=== PATIENT | male | born 1970 | race Asian ===

== ENCOUNTER → 2020-04-10 | Emergency (ER) | payer MEDICAID ==
[~2020-04-10] VITALS: Ht 144.8 cm; Wt 59.9 kg
[2020-04-10 11:10] LABS: Eosinophils # (auto) 0.1 10 ^3/uL (0-0.8); Lymphocytes # (auto) 2.4 10 ^3/uL (0.4-5.4); Monocytes # (auto) 0.6 10 ^3/uL (0-1.3); Platelet Count (auto) 162 10^3/uL (140-450)
[2020-04-10 11:13] LABS: Basophils # (auto) 0 10 ^3/uL (0-0.2); Basophils % (auto) 0.5 % (0.0-2.0); Eosinophils % (auto) 1.5 % (0.0-7.0); Hematocrit 44.5 % (41.0-53.0); Hemoglobin 14.4 g/dL (13.5-17.5); Lymphocytes % (auto) 32.9 % (10.0-50.0); Mean Corpuscular Hemoglobin 25.1 pg (28.0-32.0); Mean Corpuscular Hgb Conc. 32.2 g/dL (32.0-36.0); Mean Corpuscular Volume 77.8 fL (80.0-100.0); Monocytes % (auto) 7.8 % (0.0-12.0); Neutrophils # (auto) 4.2 10 ^3/uL (1.6-8.6); Neutrophils % (auto) 57.3 % (37.0-80.0); Nucleated Red Blood Cells % 0.2 %; Red Blood Cells 5.72 10^6/uL (4.5-5.90); Red Cell Distribution Width 15.8 % (11.8-14.3); White Blood Cell 7.3 10^3/uL (4.4-10.8)
[2020-04-10 11:28] LABS: Partial Thromboplastin Time 28.3 sec (23.64-32.05)
[2020-04-10 11:29] LABS: Albumin 3.6 g/dL (3.4-5.0); Calcium 8.3 mg/dL (8.5-10.1); Potassium 4.5 mmol/L (3.5-5.1)
[2020-04-10 11:33] LABS: Bilirubin, Total 0.6 mg/dL (0.2-1.0); Total Protein 7.6 g/dL (6.4-8.2)
[2020-04-10 13:32] VITALS: BP 118/88
== END | disposition home or self-care (01) ==
LOC: ER 10:12
DX: H04.322 Acute dacryocystitis of left lacrimal passage (principal)
CPT/HCPCS: 10060; 36415; 80053; 85025; 85610; 85730; 86850; 86900; 86901